=== PATIENT | female | born 1980 | race African-American/Black ===

== ENCOUNTER 2016-09-25 10:28 | Emergency (ER) | payer OTHER ==
--- NOTE | 2016-09-25 11:07 | ER Document Report ---
ED Medical Screen (RME) - General Chief Complaint: Abdominal Pain Stated Complaint: ABDOMINAL PAIN Time Seen by Provider: 09/25/16 11:05 Mode of Arrival: Ambulatory Information source: Patient Notes: 36-year-old female presents to ED for left pelvic pain she states she has had it for 3 days and she can usually just take ibuprofen and the pain is relieved at this time the pain is not being relieved with her ibuprofen. She states she is also having frequency of urine and has taken Azo for 3 days with no relief. States the pain does not radiate to her back. She has had nausea and vomiting. I have greeted and performed a rapid initial assessment of this patient. A comprehensive ED assessment and evaluation of the patient, analysis of test results and completion of medical decision making process will be conducted by an additional ED providers. TRAVEL OUTSIDE OF THE [place] IN LAST 30 DAYS: No - Related Data Allergies/Adverse Reactions: No Known Allergies Allergy (Verified 09/25/16 10:33) Past Medical History - Social History Chew tobacco use (# tins/day): No Frequency of alcohol use: None Drug Abuse: None - Past Medical History Cardiac Medical History: Reports: Hx Hypertension - Has not required any medications for this Pulmonary Medical History: Denies: Hx Tuberculosis Neurological Medical History: Reports: Hx Migraine Renal/ Medical History: Reports: Hx Kidney Stones. Denies: Hx Peritoneal Dialysis Psychiatric Medical History: Reports: Hx Depression Past Surgical History: Reports: Hx Breast Surgery - L lumpectomy, benign, Hx Dilation and Curettage, Hx Gynecologic Surgery - D&C - Immunizations Hx Diphtheria, Pertussis, Tetanus Vaccination: Yes Physical Exam - Vital signs Vitals: Temp Pulse Resp BP Pulse Ox 98.3 F 80 18 141/100 H 98 09/25/16 10:33 09/25/16 10:33 09/25/16 10:33 09/25/16 10:33 09/25/16 10:33 Course - Vital Signs Vital signs: Temp Pulse Resp BP Pulse Ox 98.3 F 80 18 141/100 H 98 09/25/16 10:33 09/25/16 10:33 09/25/16 10:33 09/25/16 10:33 09/25/16 10:33
[2016-09-25 11:43] LABS: ABSOLUTE BASOPHILS # (AUTO) 0.1 10^3/uL (0.0-0.2); ABSOLUTE EOSINOPHILS # (AUTO) 0.2 10^3/uL (0.0-0.6); ABSOLUTE LYMPHOCYTES (AUTO) 2.4 10^3/uL (0.5-4.7); ABSOLUTE MONOCYTES (AUTO) 0.4 10^3/uL (0.1-1.4); ABSOLUTE NEUT (AUTO) 5.9 10^3/uL (1.7-8.2); BASOPHILS % (AUTO) 0.6 % (0-2); EOSINOPHILS % (AUTO) 1.8 % (0-6); HEMATOCRIT 38.3 % (36.0-47.0); HEMOGLOBIN 12.3 g/dL (12.0-15.5); HGB HCT DIFFERENCE -1.4; MEAN CORPUSCULAR HEMOGLOBIN 30.2 pg (27.0-33.4); MEAN CORPUSCULAR HGB CONC 32.2 g/dL (32.0-36.0); MEAN CORPUSCULAR VOLUME 94 fl (80-97); MONOCYTES % (AUTO) 4.3 % (3-13); RED BLOOD COUNT 4.08 10^6/uL (3.72-5.28); RED CELL DISTRIBUTION WIDTH 13.7 % (11.5-14.0); SEGMENTED NEUTROPHILS % (AUTO) 66.3 % (42-78); WHITE BLOOD COUNT 8.9 10^3/uL (4.0-10.5)
[2016-09-25 11:59] LABS: APPEARANCE,URINE SLIGHTLY-CLOUDY; BILIRUBIN,URINE NEGATIVE (NEGATIVE); GLUCOSE, URINE NEGATIVE (NEGATIVE); KETONES,URINE NEGATIVE (NEGATIVE); LEUKOCYTE ESTERASE,URINE TRACE (NEGATIVE); NITRITE,URINE NEGATIVE (NEGATIVE); PROTEIN,URINE NEGATIVE (NEGATIVE); URINE SPECIFIC GRAVITY 1.024; UROBILINOGEN,URINE NEGATIVE mg/dL (<2.0)
[2016-09-25 12:06] LABS: ALANINE AMINOTRANSFERASE 31 U/L (9-52); ALBUMIN 4.1 g/dL (3.5-5.0); ALKALINE PHOSPHATASE 95 U/L (38-126); ANION GAP 11 (5-19); ASPARTATE AMINO TRANSFERASE 18 U/L (14-36); BILIRUBIN,DIRECT 0.2 mg/dL (0.0-0.4); BILIRUBIN,TOTAL 0.4 mg/dL (0.2-1.3); BLOOD UREA NITROGEN 12 mg/dL (7-20); CALCIUM 9.4 mg/dL (8.4-10.2); CARBON DIOXIDE 21 mmol/L (22-30); CHLORIDE 109 mmol/L (98-107); CREATININE RESULT 0.82 mg/dL (0.52-1.25); GLUCOSE 79 mg/dL (75-110); POTASSIUM 4.1 mmol/L (3.6-5.0); SODIUM 140.7 mmol/L (137-145); TOTAL PROTEIN 7.4 g/dL (6.3-8.2)
[2016-09-25] MEDS ORDERED: OXYCODONE-ACETAMINOPHEN 5-325 MG TABLET PO ONE (12:14)
[2016-09-25] MEDS ORDERED: DIPHENHYDRAMINE HCL 50 MG CAPSULE PO ONE (12:28)
--- NOTE | 2016-09-25 12:28 | ER Document Report ---
ED General - General Chief Complaint: Abdominal Pain Stated Complaint: ABDOMINAL PAIN Time Seen by Provider: 09/25/16 11:05 Mode of Arrival: Ambulatory Information source: Patient Notes: 36-year-old female history of uterine fibroids last checked 1 year ago noted to be a size of a golf ball presents with complaints of suprapubic left lower quadrant abdominal pain. Patient denies any fevers or chills, denies any urinary frequency believe this may be secondary to UTI. Patient took Azo but noted no symptomatic relief. Patient otherwise denies any other specific concerns TRAVEL OUTSIDE OF THE [place] IN LAST 30 DAYS: No - HPI Onset: Yesterday Onset/Duration: Persistent Quality of pain: Achy Severity: Mild Pain Level: 1 Associated symptoms: None Exacerbated by: Denies Relieved by: Denies Similar symptoms previously: No Recently seen / treated by doctor: No - Related Data Allergies/Adverse Reactions: No Known Allergies Allergy (Verified 09/25/16 10:33) Past Medical History - General Information source: Patient - Social History Smoking Status: Never Smoker Cigarette use (# per day): No Chew tobacco use (# tins/day): No Smoking Education Provided: No Frequency of alcohol use: None Drug Abuse: None Family History: Reviewed & Not Pertinent Patient has suicidal ideation: No Patient has homicidal ideation: No - Past Medical History Cardiac Medical History: Reports: Hx Hypertension - Has not required any medications for this Pulmonary Medical History: Denies: Hx Tuberculosis Neurological Medical History: Reports: Hx Migraine Renal/ Medical History: Reports: Hx Kidney Stones. Denies: Hx Peritoneal Dialysis Psychiatric Medical History: Reports: Hx Depression Past Surgical History: Reports: Hx Breast Surgery - L lumpectomy, benign, Hx Dilation and Curettage, Hx Gynecologic Surgery - D&C - Immunizations Hx Diphtheria, Pertussis, Tetanus Vaccination: Yes Review of Systems - Review of Systems Notes: REVIEW OF SYSTEMS: CONSTITUTIONAL : Denies fever, chills, or sweats. Denies recent illness. EENT: Denies eye, ear, throat, or mouth pain or symptoms. Denies nasal or sinus congestion or discharge. Denies throat, tongue, or mouth swelling or difficulty swallowing. CARDIOVASCULAR: Denies chest pain. Denies palpitations or racing or irregular heart beat. Denies ankle edema. RESPIRATORY: Denies cough, cold, or chest congestion. Denies shortness of breath, difficulty breathing, or wheezing. GASTROINTESTINAL: Lower quadrant pain GENITOURINARY: Denies difficulty urinating, painful urination, burning, frequency, blood in urine, or discharge. FEMALE GENITOURINARY: Denies vaginal bleeding, heavy or abnormal periods, irregular periods. Denies vaginal discharge or odor. MUSCULOSKELETAL: Denies back or neck pain or stiffness. Denies joint pain or swelling. SKIN: Denies rash, lesions or sores. HEMATOLOGIC : Denies easy bruising or bleeding. LYMPHATIC: Denies swollen, enlarged glands. NEUROLOGICAL: Denies confusion or altered mental status. Denies passing out or loss of consciousness. Denies dizziness or lightheadedness. Denies headache. Denies weakness or paralysis or loss of use of either side. Denies problems with gait or speech. Denies sensory loss, numbness, or tingling. Denies seizures. PSYCHIATRIC: Denies anxiety or stress. Denies depression, suicidal ideation, or homicidal ideation. ALL OTHER SYSTEMS REVIEWED AND NEGATIVE. PHYSICAL EXAMINATION: GENERAL: Well-appearing, well-nourished and in no acute distress. HEAD: Atraumatic, normocephalic. EYES: Pupils equal round and reactive to light, extraocular movements intact, conjunctiva are normal. ENT: Nares patent, oropharynx clear without exudates. Moist mucous membranes. NECK: Normal range of motion, supple without lymphadenopathy LUNGS: Breath sounds clear to auscultation bilaterally and equal. No wheezes rales or rhonchi. HEART: Regular rate and rhythm without murmurs ABDOMEN: Soft, minimally tender in the left lower quadrant Female : deferred Musculoskeletal: Normal range of motion, no pitting or edema. No cyanosis. NEUROLOGICAL: Cranial nerves grossly intact. Normal speech, normal gait. Normal sensory, motor exams PSYCH: Normal mood, normal affect. SKIN: Warm, Dry, normal turgor, no rashes or lesions noted. Dictation was performed using [employer] voice recognition software Physical Exam - Vital signs Vitals: Temp Pulse Resp BP Pulse Ox 98.3 F 80 18 141/100 H 98 09/25/16 10:33 09/25/16 10:33 09/25/16 10:33 09/25/16 10:33 09/25/16 10:33 Course - Re-evaluation Re-evalutation: 09/25/16 12:28 Labwork notes no significant abnormality, ultrasound pending to rule out any intrauterine issues however I believe this may be secondary to her uterine fibroid 09/25/16 15:07 Uterine fibroid is noted no other acute abnormality. Patient will be discharged to follow-up with her [employer] given pain control otherwise well- appearing in no distress After performing a Medical Screening Examination, I estimate there is LOW risk for ACUTE APPENDICITIS, BOWEL OBSTRUCTION, ACUTE CHOLECYSTITIS, PERFORATED DIVERTICULITIS, INCARCERATED HERNIA, PANCREATITIS, PELVIC INFLAMMATORY DISEASE, PERFORATED ULCER, ECTOPIC , or TUBO-OVARIAN ABSCESS, thus I consider the discharge disposition reasonable. Also, there is no evidence or peritonitis , sepsis, or toxicity. I have reevaluated this patient multiple times and no significant life threatening changes are noted. The patient and I have discussed the diagnosis and risks, and we agree with discharging home with close follow-up with the understanding that symptoms and presentations can change. We also discussed returning to the Emergency Department immediately if new or worsening symptoms occur. We have discussed the symptoms which are most concerning (e.g., bloody stool, fever, changing or worsening pain, vomiting) that necessitate immediate return. - Vital Signs Vital signs: Temp Pulse Resp BP Pulse Ox 98.3 F 80 18 141/100 H 98 09/25/16 10:33 09/25/16 10:33 09/25/16 10:33 09/25/16 10:33 09/25/16 10:33 - Laboratory Result Diagrams: 09/25/16 11:17 09/25/16 11:17 Laboratory results interpreted by me: 09/25/16 09/25/16 11:17 11:17 Chloride 109 H Carbon Dioxide 21 L Ur Leukocyte Esterase TRACE H Urine Ascorbic Acid 20 H - Diagnostic Test Radiology reviewed: Image reviewed, Reports reviewed - Report given to patient Discharge - Discharge Clinical Impression: Pelvic pain Uterine fibroid Qualifiers: Uterine leiomyoma location: unspecified location Qualified Code(s): D25.9 - Leiomyoma of uterus, unspecified Condition: Stable Disposition: HOME, SELF-CARE Additional Instructions: Follow up with your physician tomorrow for further care or return to the ED IMMEDIATELY if symptoms worsen or new concerns occur. If you cannot afford to follow up with your primary care physician a list of low cost clinics have been provided at the end of your discharge papers as well. Prescriptions: Oxycodone HCl/Acetaminophen [Percocet 5-325 mg Tablet] 1 - 2 tab PO Q4H PRN #15 tablet PRN Reason: Forms: Return to Work
[2016-09-25] MEDS ORDERED: ONDANSETRON 4 MG TAB.RAPDIS ONE (13:37)
[2016-09-25] MEDS ORDERED: ONDANSETRON 4 MG TAB.RAPDIS PO ONE (13:43)
--- NOTE | 2016-09-25 14:38 | RADIOLOGY REPORT (SQ) ---
EXAM DESCRIPTION: U/S NON OB PEL W/DOPPLER COMPLETED DATE/TIME: 09/25/2016 2:05 pm REASON FOR STUDY: left pelvic pain hx of fibroids COMPARISON: None. TECHNIQUE: Dynamic and static grayscale images acquired of the pelvis via transabdominal approach an d recorded on PACS. Additional selected color Doppler and spectral images recorded. LIMITATIONS: None. FINDINGS: UTERUS: Enlarged. Calcified fibroid measures up to 4.5 cm. ENDOMETRIAL STRIPE: No focal or generalized thickening. No masses. CERVIX: No nabothian cysts. RIGHT OVARY: Not seen. RIGHT OVARY DOPPLER: Ovary not visualized. LEFT OVARY: Not seen. LEFT OVARY DOPPLER: Ovary not visualized. FREE FLUID: None noted. OTHER: No other significant finding. MEASUREMENTS: UTERUS: 16.1 x 11.1 x 9.7 cm. ENDOMETRIAL STRIPE: 10 mm. RIGHT OVARY: Not visualized. LEFT OVARY: Not visualized. IMPRESSION: Enlarged fibroid uterus. TECHNICAL DOCUMENTATION: JOB ID: [id number] [employer]- All Rights Reserved
[2016-09-25 15:26] VITALS: BP 131/86
== END 2016-09-25 15:18 | disposition home or self-care (01) ==
LOC: ER 10:28
DX: D25.9 Leiomyoma of uterus, unspecified (principal); R10.2 Pelvic and perineal pain; R10.32 Left lower quadrant pain; Z87.442 Personal history of urinary calculi
CPT/HCPCS: 99284; 36415; 84703; 85025; 80053; 81001; 76856; 93976; S0119

== ENCOUNTER 2017-01-02 09:52 | Emergency (ER) | payer OTHER ==
[2017-01-02] MEDS ORDERED: KETOROLAC TROMETHAMINE 60 MG/2 ML SDV IM ONE (10:14)
[2017-01-02] MEDS ORDERED: PROCHLORPERAZINE EDISYLATE INJ 10 MG/2 ML VIAL IM ONE (10:14)
[2017-01-02] MEDS ORDERED: DIPHENHYDRAMINE HCL 50 MG/ML VIAL IM ONE (10:14)
--- NOTE | 2017-01-02 10:15 | ER Document Report ---
ED General - General Mode of Arrival: Ambulatory Information source: Patient TRAVEL OUTSIDE OF THE [place] IN LAST 30 DAYS: No - HPI Similar symptoms previously: Yes Recently seen / treated by doctor: No - General Chief Complaint: Back Pain Stated Complaint: LOW BACK PAIN HEADACHE Time Seen by Provider: 01/02/17 10:13 Notes: Patient is a 36 year old female presenting to the emergency department for low back pain and headache. Patient states she has had the back pain that radiates into her abdomen bilaterally x1 month. Patient states her abdominal pain is more severe today. Patient also states her headache was onset last night and is less severe today and is only located in her right eye. Patient has been using icy-hot with Lidocaine and ibuprofen for her back/abdominal pain. Patient states she used OTC medications for her headache including Aleive headache and sinus, and Nasacort. Patient states she has pain with walking, chills, and she denies any injury or trauma. Patient denies any bladder or bowel disfunction. Patient denies any vision changes. Patient denies any numbness, weakness or tingling sensations. Patient is on control and her last menstrual period was 12/03/16 and is slightly irregular. Patient is allergic to sumatriptan. (ABHISHEK BARRAGAN) - Related Data Allergies/Adverse Reactions: sumatriptan Allergy (Verified 01/02/17 10:14) Past Medical History - General Information source: Patient - Social History Smoking Status: Former Smoker Chew tobacco use (# tins/day): No Frequency of alcohol use: Occasional Drug Abuse: None Family History: None Patient has suicidal ideation: No Patient has homicidal ideation: No - Past Medical History Cardiac Medical History: Reports: Hx Hypertension - Has not required any medications for this Neurological Medical History: Reports: Hx Migraine Renal/ Medical History: Reports: Hx Kidney Stones Psychiatric Medical History: Reports: Hx Depression Past Surgical History: Reports: Hx Breast Surgery - L lumpectomy, benign, Hx Dilation and Curettage, Hx Gynecologic Surgery - D&C - Immunizations Hx Diphtheria, Pertussis, Tetanus Vaccination: Yes - 2013 Review of Systems - Review of Systems Constitutional: See HPI, Chills. denies: Fever EENT: denies: Blurred vision Gastrointestinal: See HPI, Abdominal pain. denies: Diarrhea Genitourinary: No symptoms reported. denies: Burning, Dysuria Female Genitourinary: No symptoms reported Musculoskeletal: See HPI, Back pain Neurological/Psychological: See HPI, Headaches Physical Exam - Vital signs Vitals: Temp Pulse Resp BP Pulse Ox 98.4 F 78 16 147/88 H 98 01/02/17 10:01 01/02/17 10:01 01/02/17 10:01 01/02/17 10:01 01/02/17 10:01 - Notes Notes: GENERAL: Alert. Leaning forward in chair. Appears mildly uncomfortable. HEAD: Normocephalic, atraumatic. EYES: Pupils equal, round, and reactive to light. Extraocular movements intact. ENT: Oral mucosa moist, tongue midline. NECK: Full range of motion. Supple. Trachea midline. LUNGS: Clear to auscultation bilaterally, no wheezes, rales, or rhonchi. No respiratory distress. HEART: Regular rate and rhythm. No murmurs, gallops, or rubs. ABDOMEN: Soft, Mild tenderness to the bilateral lower quadrants, not tender suprapubically. Non-distended. Bowel sounds present in all 4 quadrants. BACK: No step-offs or deformities. Tenderness to the bilaterally lumbar paraspinal musculature. EXTREMITIES: Moves all 4 extremities spontaneously. No edema. No cyanosis. NEUROLOGICAL: Alert and oriented x3. Normal speech. 5/5 great toe raise strength. Sensation intact, no saddle anesthesia. Ambulates without difficulty. PSYCH: Normal affect, normal mood. SKIN: Warm, dry, normal turgor. No rashes or lesions noted. (ABHISHEK BARRAGAN) Course - Re-evaluation Re-evalutation: 01/02/17 11:02 No signs of cauda equina, no neurologic deficits, consistent with her usual migraines, urinalysis shows no blood or infection, patient is not . Patient will be treated with Toradol, Compazine, Benadryl for the headache and given muscle relaxers in the form of Robaxin for her low back pain and discharged home. Counseled on warning signs for cauda equina that should prompt her immediate return. (NARCISA FREEMAN) - Vital Signs Vital signs: Temp Pulse Resp BP Pulse Ox 97.8 F 76 20 125/71 99 01/02/17 11:08 01/02/17 11:08 01/02/17 11:08 01/02/17 11:08 01/02/17 11:08 - Laboratory Laboratory results interpreted by me: 01/02/17 10:20 Urine Ascorbic Acid 40 H Discharge - Discharge Clinical Impression: Acute exacerbation of chronic low back pain Migraine headache Qualifiers: Migraine type: without aura Status migrainosus presence: with status migrainosus Intractability: intractable Qualified Code(s): G43.011 - Migraine without aura, intractable, with status migrainosus Hypertension Qualifiers: Hypertension type: essential hypertension Qualified Code(s): I10 - Essential ( primary) hypertension Disposition: HOME, SELF-CARE Instructions: Low Back Pain ([facility]) Prescriptions: Methocarbamol [Robaxin 750 mg Tablet] 750 mg PO ASDIR PRN #40 tablet PRN Reason: Scribe Attestation: 01/02/17 11:13 I personally performed the services described in the documentation, reviewed and edited the documentation which was dictated to the scribe in my presence, and it accurately records my words and actions. (NARCISA FREEMAN) Scribe Documentation - Scribe Written by Leidy:: Leidy Galeas 01/02/17 10:37 acting as scribe for :: Staci
[2017-01-02 10:40] LABS: APPEARANCE,URINE CLOUDY; BILIRUBIN,URINE NEGATIVE (NEGATIVE); GLUCOSE, URINE NEGATIVE (NEGATIVE); KETONES,URINE NEGATIVE (NEGATIVE); LEUKOCYTE ESTERASE,URINE NEGATIVE (NEGATIVE); NITRITE,URINE NEGATIVE (NEGATIVE); PROTEIN,URINE NEGATIVE (NEGATIVE); URINE SPECIFIC GRAVITY 1.029; UROBILINOGEN,URINE NEGATIVE mg/dL (<2.0)
[2017-01-02 11:09] VITALS: BP 125/71
== END 2017-01-02 11:09 | disposition home or self-care (01) ==
LOC: ER 09:52
DX: G89.29 Other chronic pain (principal); M54.5 Low back pain; G43.011 Migraine without aura, intractable, with status migrainosus; I10 Essential (primary) hypertension; R10.9 Unspecified abdominal pain
CPT/HCPCS: 99283; 96372; 81025; 81001; J1200; J1885; J0780

== ENCOUNTER 2017-04-04 09:59 | Emergency (ER) | payer OTHER ==
[2017-04-04 10:06] VITALS: BP 137/85
--- NOTE | 2017-04-04 10:23 | ER Document Report ---
HPI - HPI Pain Level: 3 Notes: Patient is a 37-year-old female who presents to the ED complaining of nasal congestion/discharge, intermittent bloody nose, sinus headaches, postnasal drip , sinus pain 4 weeks. Patient states that she has been using several over-the- counter medications which she brought a list of without any relief over the last month. Patient states that her symptoms have been persistent. Patient states that she does have an intermittent sore throat, postnasal drip, but is otherwise eating and drinking without any difficulties. She is urinating normally and having normal bowel movements. Patient denies any drug allergies. Patient has a history of migraines otherwise no other significant past medical history. Denies any fever, head injury, neck pain, changes in vision/ speech/mentation/hearing, sore throat, chest pain, palpitations, syncope, cough , shortness of breath, wheeze, dyspnea, abdominal pain, nausea/vomiting/diarrhea , urinary retention, dysuria, hematuria, loss of control of bowel or bladder, numbness/tingling, muscle paralysis/weakness, or rash. - ROS Notes: REVIEW OF SYSTEMS: CONSTITUTIONAL : Denies fever, chills, or sweats. Denies recent illness. EENT: see hpi CARDIOVASCULAR: Denies chest pain. Denies palpitations or racing or irregular heart beat. Denies ankle edema. RESPIRATORY: Denies cough, cold, or chest congestion. Denies shortness of breath, difficulty breathing, or wheezing. GASTROINTESTINAL: Denies abdominal pain or distention. Denies nausea, vomiting , or diarrhea. Denies blood in vomitus, stools, or per rectum. Denies black, tarry stools. Denies constipation. GENITOURINARY: Denies difficulty urinating, painful urination, burning, frequency, blood in urine, or discharge. MUSCULOSKELETAL: Denies back or neck pain or stiffness. Denies joint pain or swelling. SKIN: Denies rash, lesions or sores. NEUROLOGICAL: Denies confusion or altered mental status. Denies passing out or loss of consciousness. Denies dizziness or lightheadedness. Denies headache. Denies weakness or paralysis or loss of use of either side. Denies problems with gait or speech. Denies sensory loss, numbness, or tingling. Denies seizures. ALL OTHER SYSTEMS REVIEWED AND NEGATIVE. Dictation was performed using [employer] voice recognition software - REPRODUCTIVE Reproductive: DENIES: : Past Medical History - Social History Smoking Status: Never Smoker Family History: None - Past Medical History Cardiac Medical History: Reports: Hx Hypertension - Has not required any medications for this Pulmonary Medical History: Denies: Hx Tuberculosis Neurological Medical History: Reports: Hx Migraine Renal/ Medical History: Reports: Hx Kidney Stones. Denies: Hx Peritoneal Dialysis Psychiatric Medical History: Reports: Hx Depression Past Surgical History: Reports: Hx Breast Surgery - L lumpectomy, benign, Hx Dilation and Curettage, Hx Gynecologic Surgery - D&C - Immunizations Hx Diphtheria, Pertussis, Tetanus Vaccination: Yes - 2013 [facility] Provider Document - CONSTITUTIONAL Agree With Documented VS: Yes Notes: PHYSICAL EXAMINATION: GENERAL: Well-appearing, well-nourished and in no acute distress. A&Ox4 HEAD: Atraumatic, normocephalic. EYES: Pupils equal round and reactive to light, extraocular movements intact, sclera anicteric, conjunctiva are normal. ENT: EAC clear b/l. TM's intact b/l without erythema, fluid, or perforation. Nares patent and with yellow discharge and mild erythema noted. oropharynx mild erythema without exudates. 1+ tonsilar hypertrophy without erythema or exudate. No palatine shift. Uvula midline. No tongue protrusion. No drooling , hoarseness, or airway compromise. Moist mucous membranes. + sinus tenderness and illumination test. NECK: Normal range of motion, supple without lymphadenopathy. No rigidity/ meningismus. LUNGS: Breath sounds clear to auscultation bilaterally and equal. No wheezes rales or rhonchi. HEART: Regular rate and rhythm without murmurs, rubs, gallops. ABDOMEN: Soft, nontender, nondistended abdomen. No guarding, no rebound. No masses appreciated. Normal bowel sounds present. No CVA tenderness bilaterally. NEUROLOGICAL: Normal speech, normal gait. Normal sensory, motor exams PSYCH: Normal mood, normal affect. SKIN: Warm, Dry, normal turgor, no rashes or lesions noted. - INFECTION CONTROL TRAVEL OUTSIDE OF THE [place] IN LAST 30 DAYS: No - RESPIRATORY O2 Sat by Pulse Oximetry: 98 Course - Re-evaluation Re-evalutation: 04/04/17 10:20 Patient is an afebrile, well-hydrated, 37-year-old female who presents to the ED with acute sinusitis based on H&P today. Vitals are stable. PE is otherwise unremarkable. Patient has had less symptoms for weeks and brings a very detailed use of her [id number] meds with minimal relief. Patient had a positive illumination test as well. I will send her home with a prescription for Augmentin to take as directed. Conservative measures for symptoms otherwise. Low suspicion for any meningitis, sepsis, peritonsillar/ pharyngeal abscess, respiratory compromise, Adonis's, or other emergent systemic condition at this time. Patient is aware this condition can change from initial presentation and she needs to monitor symptoms closely. Conservative measures otherwise for symptoms. Recheck with your PCM in 3-5 days. Return to the ED with any worsening/concerning symptoms otherwise as reviewed in discharge. Patient is in agreement. - Vital Signs Vital signs: Temp Pulse Resp BP Pulse Ox 98.7 F 80 18 137/85 H 98 04/04/17 10:04 04/04/17 10:04 04/04/17 10:04 04/04/17 10:04 04/04/17 10:04 Discharge - Discharge Clinical Impression: Acute sinusitis Qualifiers: Sinusitis location: maxillary Recurrence: non-recurrent Qualified Code(s): J01.00 - Acute maxillary sinusitis, unspecified Condition: Stable Disposition: HOME, SELF-CARE Instructions: Sinusitis ([facility]), Augmentin ([facility]) Additional Instructions: Maintain adequate fluid intake Take meds as directed Salt water gargles, throat sprays, mouthwash rinse, peroxide gargles tylenol/ibuprofen as needed over the counter cold medication as needed for symptoms F/u: with your PCM in 3-5 days for a recheck Return to the ED with any fever, worsening pain, chest pain, neck pain/stiffness , shortness of breath, cough, drooling, trouble swallowing/breathing, abdominal pain, n/v/d, rash, or worsening/concerning symptoms otherwise. Prescriptions: Amox Tr/Potassium Clavulanate [Augmentin 875-125 Tablet] 1 tab PO BID 10 Days # 20 tablet Forms: Elevated Blood Pressure Referrals: [facility] [Provider Group] - Follow up as needed [facility] [Provider Group] - Follow up as needed
== END 2017-04-04 10:35 | disposition home or self-care (01) ==
LOC: ER 09:59
DX: J01.00 Acute maxillary sinusitis, unspecified (principal); J02.9 Acute pharyngitis, unspecified; J35.1 Hypertrophy of tonsils; R04.0 Epistaxis; R51 Headache; R09.82 Postnasal drip; I10 Essential (primary) hypertension
CPT/HCPCS: 99283

== ENCOUNTER 2017-07-18 13:50 | Emergency (ER) | payer OTHER ==
--- NOTE | 2017-07-18 15:29 | RADIOLOGY REPORT (SQ) ---
EXAM DESCRIPTION: HIP RIGHT AP/LATERAL COMPLETED DATE/TIME: 07/18/2017 3:10 pm REASON FOR STUDY: right hip pain COMPARISON: None. NUMBER OF VIEWS: Two views. TECHNIQUE: AP pelvis and additional frog-leg view of the right hip. LIMITATIONS: None. FINDINGS: MINERALIZATION: Normal. RIGHT HIP: No fracture or dislocation. No worrisome bone lesions. No contour deformity. No joint sp yoan narrowing. LEFT HIP: No fracture or dislocation. No worrisome bone lesions. PUBIS AND ISCHIUM: No fracture. PELVIS: No fracture. SACRUM: No fracture or dislocation. No worrisome bone lesions. LOWER LUMBAR SPINE: No fracture or dislocation. No worrisome bone lesions. No significant disc disea se. SOFT TISSUES: No findings. OTHER: No other significant finding. IMPRESSION: NEGATIVE STUDY OF THE RIGHT HIP. NO EXPLANATION FOR PAIN. TECHNICAL DOCUMENTATION: JOB ID: [id number] [employer]- All Rights Reserved Reading location - IP/workstation name: [email or web address]
--- NOTE | 2017-07-18 15:41 | ER Document Report ---
HPI - HPI Patient complains to provider of: right low back pain Onset: Other - 1 month Onset/Duration: Persistent Pain Level: 4 Context: 37 yo morbidly obese female c/o right low back pain that radiates into buttocks , hip, lateral right thigh for 1 month. Worse when she stands at work. No saddle anesthesia. No fever or chills. No IV drug use. Associated Symptoms: None Exacerbated by: Standing, Movement Relieved by: Denies Similar symptoms previously: No Recently seen / treated by doctor: No - ROS ROS below otherwise negative: Yes Systems Reviewed and Negative: Yes All other systems reviewed and negative - REPRODUCTIVE Reproductive: DENIES: : Past Medical History - General Information source: Patient - Social History Smoking Status: Never Smoker Frequency of alcohol use: None Drug Abuse: None Lives with: Family Family History: None - Past Medical History Cardiac Medical History: Reports: Hx Hypertension - Has not required any medications for this Pulmonary Medical History: Denies: Hx Tuberculosis Neurological Medical History: Reports: Hx Migraine Renal/ Medical History: Reports: Hx Kidney Stones. Denies: Hx Peritoneal Dialysis Psychiatric Medical History: Reports: Hx Depression Past Surgical History: Reports: Hx Breast Surgery - L lumpectomy, benign, Hx Dilation and Curettage, Hx Gynecologic Surgery - D&C - Immunizations Hx Diphtheria, Pertussis, Tetanus Vaccination: Yes - 2013 [facility] Provider Document - CONSTITUTIONAL Agree With Documented VS: Yes Exam Limitations: No Limitations General Appearance: Mild Distress - INFECTION CONTROL TRAVEL OUTSIDE OF THE [place] IN LAST 30 DAYS: No - HEENT HEENT: Normocephalic - NECK Neck: Supple - BACK Back: Normal Inspection. negative: CVA Tenderness-Right, CVA Tenderness-Left - MUSCULOSKELETAL/EXTREMETIES Musculoskeletal/Extremeties: MAEW, FROM, Tender - right SI joint pain - NEURO Level of Consciousness: Awake, Alert Motor/Sensory: No Motor Deficit, No Sensory Deficit Deep Tendon Reflexes: 2+ - bilateral ankle and patellar - DERM Integumentary: No Rash Course - Re-evaluation Re-evalutation: 07/18/17 16:14 X-rays negative per radiologist and putting traction on her right legand tge external rotation of the right hip is decreasing the pain. Discharge - Discharge Clinical Impression: right sacroillitis Condition: Good Disposition: HOME, SELF-CARE Instructions: Acetaminophen, Arthralgia ([facility]), Chiropractor, Ibuprofen (General ) ([facility]), Low Back Pain ([facility]), Muscle Relaxers ([facility]), Muscle Strain ([facility]) Additional Instructions: heat stretches that we discussed motrin 100 mg 3 times a day with food formation tylenol up to 4000 mg per day for pain flexeril as muscle relaxer See chiropractor for recheck Prescriptions: Ibuprofen [Motrin 800 mg Tablet] 800 mg PO Q8HP PRN #30 tablet PRN Reason: Cyclobenzaprine HCl [Flexeril 10 Mg Tablet] 10 mg PO TIDP PRN #20 tablet PRN Reason: Forms: Return to Work Referrals: ISA SWANSON DC [CHIROPRACTOR] - Follow up as needed
[2017-07-18] MEDS ORDERED: HYDROCODONE/ACETAMINOPHEN 5-325 MG TABLET PO ONE (16:15)
[2017-07-18 16:56] VITALS: BP 127/89
== END 2017-07-18 16:56 | disposition home or self-care (01) ==
LOC: ER 13:50
DX: M46.1 Sacroiliitis, not elsewhere classified (principal); I10 Essential (primary) hypertension
CPT/HCPCS: 99283

== ENCOUNTER 2017-09-11 08:36 | Emergency (ER) | payer OTHER ==
[2017-09-11] MEDS ORDERED: ACETAMINOPHEN 325 MG TABLET PO ONE (09:23)
--- NOTE | 2017-09-11 09:24 | ER Document Report ---
ED Medical Screen (RME) - General Chief Complaint: Abdominal Pain Stated Complaint: ABDOMINAL PAIN Time Seen by Provider: 09/11/17 09:14 Notes: 37-year-old female with a history of uterine fibroids presents with complaint of 1 week of left lower abdominal pain. Patient describes the pain as a throbbing, stabbing pain that is not relieved with NSAIDs. Patient has had an abnormal periods and states her last menstrual period was June 2017. She is currently sexually active with her . Patient denies associated dysuria, hematuria, vaginal discharge. She denies any prior similar symptoms. I have greeted and performed a rapid initial assessment of this patient. A comprehensive ED assessment and evaluation of the patient including analysis of labs and imaging ( if obtained) and completion of medical decision making will be conducted by an additional ED provider. PHYSICAL EXAMINATION: GENERAL: Well-appearing, well-nourished and in no acute distress. HEAD: Atraumatic, normocephalic. EYES: Pupils equal round extraocular movements intact, conjunctiva are normal. ENT: Nares patent NECK: Normal range of motion LUNGS: No respiratory distress Musculoskeletal: Normal range of motion NEUROLOGICAL: Normal speech, normal gait. PSYCH: Normal mood, normal affect. SKIN: Warm, Dry, normal turgor, no rashes or lesions noted. TRAVEL OUTSIDE OF THE [place] IN LAST 30 DAYS: No - Related Data Allergies/Adverse Reactions: No Known Allergies Allergy (Verified 09/11/17 08:37) Past Medical History - Social History Frequency of alcohol use: None Drug Abuse: None - Past Medical History Cardiac Medical History: Reports: Hx Hypertension - Has not required any medications for this Pulmonary Medical History: Denies: Hx Tuberculosis Neurological Medical History: Reports: Hx Migraine Renal/ Medical History: Reports: Hx Kidney Stones. Denies: Hx Peritoneal Dialysis Psychiatric Medical History: Reports: Hx Depression Past Surgical History: Reports: Hx Breast Surgery - L lumpectomy, benign, Hx Dilation and Curettage, Hx Gynecologic Surgery - D&C - Immunizations Hx Diphtheria, Pertussis, Tetanus Vaccination: Yes - 2013 History of Influenza Vaccine for 12/2016 - 05/2017 Season: Unknown Physical Exam - Vital signs Vitals: Temp Pulse Resp BP Pulse Ox 98.9 F 88 20 132/70 H 97 09/11/17 08:44 09/11/17 08:44 09/11/17 08:44 09/11/17 08:44 09/11/17 08:44 Course - Vital Signs Vital signs: Temp Pulse Resp BP Pulse Ox 98.9 F 88 20 132/70 H 97 09/11/17 08:44 09/11/17 08:44 09/11/17 08:44 09/11/17 08:44 09/11/17 08:44
[2017-09-11 09:48] LABS: ABSOLUTE EOSINOPHILS # (AUTO) 0.2 10^3/uL (0.0-0.6); ABSOLUTE LYMPHOCYTES (AUTO) 2.1 10^3/uL (0.5-4.7); ABSOLUTE MONOCYTES (AUTO) 0.4 10^3/uL (0.1-1.4); ABSOLUTE NEUT (AUTO) 5.2 10^3/uL (1.7-8.2); BASOPHILS % (AUTO) 0.5 % (0-2); EOSINOPHILS % (AUTO) 2.5 % (0-6); HEMATOCRIT 37.8 % (36.0-47.0); HEMOGLOBIN 12.7 g/dL (12.0-15.5); LYMPHOCYTES % (AUTO) 26.8 % (13-45); MEAN CORPUSCULAR HEMOGLOBIN 31.5 pg (27.0-33.4); MEAN CORPUSCULAR HGB CONC 33.7 g/dL (32.0-36.0); MEAN CORPUSCULAR VOLUME 94 fl (80-97); MONOCYTES % (AUTO) 4.7 % (3-13); PLATELET COUNT 345 10^3/uL (150-450); RED BLOOD COUNT 4.04 10^6/uL (3.72-5.28); RED CELL DISTRIBUTION WIDTH 13.5 % (11.5-14.0); SEGMENTED NEUTROPHILS % (AUTO) 65.5 % (42-78); TOTAL CELLS COUNTED % (AUTO) 100 %; WHITE BLOOD COUNT 7.9 10^3/uL (4.0-10.5)
[2017-09-11 09:51] LABS: APPEARANCE,URINE SLIGHTLY-CLOUDY; BILIRUBIN,URINE NEGATIVE (NEGATIVE); COLOR,URINE YELLOW; GLUCOSE, URINE NEGATIVE (NEGATIVE); KETONES,URINE NEGATIVE (NEGATIVE); LEUKOCYTE ESTERASE,URINE NEGATIVE (NEGATIVE); NITRITE,URINE NEGATIVE (NEGATIVE); PROTEIN,URINE NEGATIVE (NEGATIVE); URINE SPECIFIC GRAVITY 1.017; UROBILINOGEN,URINE NEGATIVE mg/dL (<2.0)
[2017-09-11 09:58] LABS: ANION GAP 8 (5-19); BLOOD UREA NITROGEN 10 mg/dL (7-20); CALCIUM 9.4 mg/dL (8.4-10.2); CARBON DIOXIDE 30 mmol/L (22-30); CHLORIDE 105 mmol/L (98-107); GLUCOSE 87 mg/dL (75-110); POTASSIUM 4.2 mmol/L (3.6-5.0); SODIUM 142.9 mmol/L (137-145)
--- NOTE | 2017-09-11 10:12 | ER Document Report ---
ED GI/ - General Chief Complaint: Abdominal Pain Stated Complaint: ABDOMINAL PAIN Time Seen by Provider: 09/11/17 09:14 Mode of Arrival: Ambulatory Information source: Patient Notes: Patient presents complaining of left lower quadrant pelvic pain for the past week. Patient does complain of nausea. Patient denies any fever, vomiting, diarrhea or urinary symptoms. Patient denies any vaginal bleeding or discharge. TRAVEL OUTSIDE OF THE [place] IN LAST 30 DAYS: No - HPI Patient complains to provider of: Pelvic pain. No: Vomiting Onset: Last week Timing/Duration: Persistent Quality of pain: Sharp Pain Level: 4 Location: LLQ Menstrual period history: denies: Sexual history: Active Associated symptoms: Nausea. denies: Dysuria, Fever, Urinary hesitancy, Urinary frequency, Urinary retention, Urinary urgency, Vaginal discharge, Vomiting Exacerbated by: Movement Relieved by: Denies Similar symptoms previously: No Recently seen / treated by doctor: No - Related Data Allergies/Adverse Reactions: No Known Allergies Allergy (Verified 09/11/17 08:37) Past Medical History - General Information source: Patient - Social History Smoking Status: Never Smoker Frequency of alcohol use: None Drug Abuse: None Occupation: [employer] Lives with: Family Family History: None Patient has suicidal ideation: No Patient has homicidal ideation: No - Past Medical History Cardiac Medical History: Reports: Hx Hypertension - Has not required any medications for this Pulmonary Medical History: Denies: Hx Tuberculosis Neurological Medical History: Reports: Hx Migraine Renal/ Medical History: Reports: Hx Kidney Stones. Denies: Hx Peritoneal Dialysis Psychiatric Medical History: Reports: Hx Depression Past Surgical History: Reports: Hx Breast Surgery - L lumpectomy, benign, Hx Dilation and Curettage, Hx Gynecologic Surgery - D&C - Immunizations Hx Diphtheria, Pertussis, Tetanus Vaccination: Yes - 2013 Review of Systems - Review of Systems Constitutional: No symptoms reported. denies: Fever, Recent illness EENT: No symptoms reported Cardiovascular: No symptoms reported Respiratory: No symptoms reported. denies: Cough Gastrointestinal: Abdominal pain, Nausea. denies: Vomiting Genitourinary: No symptoms reported. denies: Dysuria, Flank pain Female Genitourinary: No symptoms reported Musculoskeletal: No symptoms reported. denies: Back pain Skin: No symptoms reported Hematologic/Lymphatic: No symptoms reported Neurological/Psychological: No symptoms reported Physical Exam - Vital signs Vitals: Temp Pulse Resp BP Pulse Ox 98.9 F 88 20 132/70 H 97 09/11/17 08:44 09/11/17 08:44 09/11/17 08:44 09/11/17 08:44 09/11/17 08:44 - General General appearance: Appears well, Alert In distress: None - HEENT Head: Normocephalic, Atraumatic Eyes: Normal Conjunctiva: Normal Nasal: Normal Mouth/Lips: Normal Mucous membranes: Normal Neck: Normal - Respiratory Respiratory status: No respiratory distress Chest status: Nontender Breath sounds: Normal. No: Rales, Rhonchi, Stridor, Wheezing Chest palpation: Normal - Cardiovascular Rhythm: Regular Heart sounds: S1 appreciated, S2 appreciated Murmur: No - Abdominal Inspection: Morbidly Obese Distension: No distension Bowel sounds: Normal Tenderness: Tender - Left lower pelvic. No: Padilla's sign, Guarding Organomegaly: No organomegaly - Genitourinary External exam: Normal Speculum exam: Cervix closed Vaginal bleeding: None Bimanuel exam: Adnexal tenderness - Left. No: Cervical motion tender - Back Back: Normal, Nontender. No: CVA tenderness - Extremities General upper extremity: Normal inspection, Normal ROM General lower extremity: Normal inspection, Normal ROM - Neurological Neuro grossly intact: Yes Cognition: Normal Cooper Coma Scale Eye Opening: Spontaneous [place] Coma Scale Verbal: Oriented Cooper Coma Scale Motor: Obeys Commands Cooper Coma Scale Total: 15 - Psychological Associated symptoms: Normal affect, Normal mood - Skin Skin Temperature: Warm Skin Moisture: Dry Skin Color: Normal Course - Re-evaluation Re-evalutation: 09/11/17 11:26 Patient continues with complaints of left lower pelvic sharp pain. Patient uncomfortable and is requesting additional pain medication. - Vital Signs Vital signs: Temp Pulse Resp BP Pulse Ox 97.6 F 79 18 121/73 100 09/11/17 14:13 09/11/17 14:13 09/11/17 14:13 09/11/17 14:13 09/11/17 14:13 - Laboratory Result Diagrams: 09/11/17 09:20 09/11/17 09:20 Laboratory results interpreted by me: Labs- Entire Visit 09/11/17 09/11/17 09/11/17 09:20 09:20 09:20 WBC 7.9 RBC 4.04 Hgb 12.7 Hct 37.8 MCV 94 MCH 31.5 MCHC 33.7 RDW 13.5 Plt Count 345 Seg Neutrophils % 65.5 Lymphocytes % 26.8 Monocytes % 4.7 Eosinophils % 2.5 Basophils % 0.5 Absolute Neutrophils 5.2 Absolute Lymphocytes 2.1 Absolute Monocytes 0.4 Absolute Eosinophils 0.2 Absolute Basophils 0.0 Sodium 142.9 Potassium 4.2 Chloride 105 Carbon Dioxide 30 Anion Gap 8 BUN 10 Creatinine 0.73 Est GFR ( Amer) > 60 Est GFR (Non-Af Amer) > 60 Glucose 87 Calcium 9.4 Urine Color YELLOW Urine Appearance SLIGHTLY-CLOUDY Urine pH 6.0 Ur Specific Haines 1.017 Urine Protein NEGATIVE Urine Glucose (UA) NEGATIVE Urine Ketones NEGATIVE Urine Blood NEGATIVE Urine Nitrite NEGATIVE Urine Bilirubin NEGATIVE Urine Urobilinogen NEGATIVE Ur Leukocyte Esterase NEGATIVE Urine WBC (Auto) 2 Urine RBC (Auto) 2 Squamous Epi Cells Auto 5 Urine Mucus (Auto) RARE Urine Ascorbic Acid NEGATIVE Urine HCG, Qual NEGATIVE Epi Cells (Wet Prep) Trichomonas (Wet Prep) Vaginal WBC Vaginal Yeast Chlamydia DNA (PCR) N.gonorrhoeae DNA (PCR) 09/11/17 09/11/17 10:08 10:08 WBC RBC Hgb Hct MCV MCH MCHC RDW Plt Count Seg Neutrophils % Lymphocytes % Monocytes % Eosinophils % Basophils % Absolute Neutrophils Absolute Lymphocytes Absolute Monocytes Absolute Eosinophils Absolute Basophils Sodium Potassium Chloride Carbon Dioxide Anion Gap BUN Creatinine Est GFR ( Amer) Est GFR (Non-Af Amer) Glucose Calcium Urine Color Urine Appearance Urine pH Ur Specific Haines Urine Protein Urine Glucose (UA) Urine Ketones Urine Blood Urine Nitrite Urine Bilirubin Urine Urobilinogen Ur Leukocyte Esterase Urine WBC (Auto) Urine RBC (Auto) Squamous Epi Cells Auto Urine Mucus (Auto) Urine Ascorbic Acid Urine HCG, Qual Epi Cells (Wet Prep) 3+ EPITHELIALS SEEN Trichomonas (Wet Prep) NO TRICHOMONAS SEEN Vaginal WBC 1+ WBCS SEEN Vaginal Yeast NO YEAST SEEN Chlamydia DNA (PCR) NOT DETECTED N.gonorrhoeae DNA (PCR) NOT DETECTED - Diagnostic Test Radiology reviewed: Reports reviewed Discharge - Discharge Clinical Impression: Pelvic pain Ovarian cyst Qualifiers: Laterality: left Qualified Code(s): N83.202 - Unspecified ovarian cyst, left side Fibroid, uterine Qualifiers: Uterine leiomyoma location: unspecified location Qualified Code(s): D25.9 - Leiomyoma of uterus, unspecified Condition: Stable Disposition: HOME, SELF-CARE Instructions: Oral Narcotic Medication ([facility]), Ovarian Cyst ([facility]), Pelvic Pain ( [facility]) Additional Instructions: Return immediately for any new or worsening symptoms Followup with your primary care provider, call tomorrow to make a followup appointment 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
[2017-09-11 10:19] LABS: EPITHELIALS (WET MOUNT) 3+ EPITHELIALS SEEN; T.VAGINALIS (WET MOUNT) NO TRICHOMONAS SEEN; WBCS (WET MOUNT) 1+ WBCS SEEN; YEAST (WET MOUNT) NO YEAST SEEN
--- NOTE | 2017-09-11 11:03 | RADIOLOGY REPORT (SQ) ---
EXAM DESCRIPTION: U/S NON OB PEL TV W/DOPPLER COMPLETED DATE/TIME: 09/11/2017 10:45 am REASON FOR STUDY: left adnexal pain COMPARISON: CT abdomen pelvis 08/07/2014 Pelvic ultrasound 09/25/2016 TECHNIQUE: Dynamic and static grayscale images acquired of the pelvis via transvaginal approach and recorded on PACS. Additional selected color Doppler and spectral images recorded. LIMITATIONS: Bilateral adnexal bowel gas, unable to visualize the right or left adnexa. Limited mesfin dy due to large body habitus. Uterine fundus not well seen FINDINGS: UTERUS: Uterus is 15 x 8 x 9 cm in size. The peripherally calcified submucosal fibroid or polyp seen in the uterine fundus on studies from 2014 and 2016 is not identified on this endovaginal exam. Uterine fundus not well seen. ENDOMETRIAL STRIPE: Less than 6 mm in thickness CERVIX: Small nabothian cysts. Cervix is closed, 5 cm in length. RIGHT OVARY AND DOPPLER: Not visualized LEFT OVARY AND DOPPLER: Not visualized FREE FLUID: None noted. OTHER: No other significant finding. IMPRESSION: Enlarged uterus. Peripherally calcified submucosal fibroid or endometrial polyp seen on 08/07/2014 and 09/25/2016 studies is not identified on today's endovaginal exam. Nonvisualization of the adnexa due to bowel gas and technical limitations TECHNICAL DOCUMENTATION: JOB ID: [id number] [employer]- All Rights Reserved Rev-08/12 Reading location - IP/workstation name: [email or web address]
[2017-09-11 11:45] LABS: CHLAM PCR NOT DETECTED (NOT DETECT); GON PCR NOT DETECTED (NOT DETECT)
[2017-09-11] MEDS ORDERED: FENTANYL CITRATE INJ/PF 100 MCG/2 ML AMPUL IV ONE (12:24)
--- NOTE | 2017-09-11 13:17 | RADIOLOGY REPORT (SQ) ---
EXAM DESCRIPTION: CT ABD/PELVIS WITH IV ONLY COMPLETED DATE/TIME: 09/11/2017 12:38 pm REASON FOR STUDY: LLQ pain COMPARISON: CT abdomen pelvis 08/07/2014, 11/21/2013, 01/31/2013 TECHNIQUE: CT scan of the abdomen and pelvis performed using helical scanning technique with dynamic intravenous contrast injection. No oral contrast. Images reviewed with lung, soft tissue, and bone windows. Reconstructed coronal and sagittal MPR images reviewed. Delayed images for evaluation of the urinary system also acquired. All images stored on PACS. All CT scanners at this facility use dose modulation, iterative reconstruction, and/or weight based d osing when appropriate to reduce radiation dose to as low as reasonably achievable (ALARA). [facility]: Dose Right [facility]: CareDose [facility]: Dose Right [facility]: Teradose 4D [facility]: MONOQI CONTRAST TYPE AND DOSE: contrast/concentration: Isovue 370.00 mg/ml; Total Contrast Delivered: 100.0 ml; Total Saline Delivered: 72.0 ml RENAL FUNCTION: Creatinine 0.73 RADIATION DOSE: CT Rad equipment meets quality standard of care and radiation dose reduction techniq ues were employed. CTDIvol: 21.1 mGy. DLP: 3619 mGy-cm.. LIMITATIONS: None. FINDINGS: LOWER CHEST: Unremarkable LIVER: Normal size. No masses. No dilated ducts. SPLEEN: Normal size. No focal lesions. PANCREAS: No masses. No significant calcifications. No adjacent inflammation or peripancreatic fluid collections. Pancreatic duct not dilated. GALLBLADDER: No identified stones by CT criteria. No inflammatory changes to suggest cholecystitis. ADRENAL GLANDS: No significant masses or asymmetry. RIGHT KIDNEY AND URETER: No solid masses. No significant calcifications. No hydronephrosis or hyd roureter. LEFT KIDNEY AND URETER: No solid masses. No significant calcifications. No hydronephrosis or hydr oureter. AORTA AND VESSELS: No aneurysm. No dissection. Renal arteries, SMA, celiac without stenosis. RETROPERITONEUM: No retroperitoneal adenopathy, hemorrhage or masses. BOWEL AND PERITONEAL CAVITY: No masses or inflammatory changes. No free fluid or peritoneal masses. No CT evidence of bowel obstruction APPENDIX: Normal. PELVIS: Uterus is 16 x 9 x 11 cm in size. Peripherally calcified endometrial polyp or degenerating f ibroid seen 08/07/2014 is no longer identified. Normal size ovaries with 3.5 cm cyst left ovary evide nt on axial image 62. No free pelvic fluid. No adenopathy. ABDOMINAL WALL: No masses. No hernias. BONES: No significant or acute findings. OTHER: No other significant finding. IMPRESSION: 3.5 cm left ovarian cyst. Enlarged fibroid uterus. Otherwise unremarkable study TECHNICAL DOCUMENTATION: JOB ID: [id number] Quality ID # [id number]: Final reports with documentation of one or more dose reduction techniques (e.g., Au tomated exposure control, adjustment of the mA and/or kV according to patient size, use of iterative reconstruction technique) 2010 [employer]- All Rights Reserved Reading location - IP/workstation name: [email or web address]
[2017-09-11 14:14] VITALS: BP 121/73
== END 2017-09-11 14:14 | disposition home or self-care (01) ==
LOC: ER 08:36
DX: N83.202 Unspecified ovarian cyst, left side (principal); D25.9 Leiomyoma of uterus, unspecified; R10.2 Pelvic and perineal pain; R10.32 Left lower quadrant pain; R11.0 Nausea; I10 Essential (primary) hypertension
CPT/HCPCS: 99284; 96374; 36415; 87210; 85025; 81025; 80048; 81001; 87491; 87591; 76830; 93976; 74177; J3010

== ENCOUNTER 2018-05-02 15:21 | Emergency (ER) | payer OTHER ==
--- NOTE | 2018-05-02 17:21 | ER Document Report ---
ED Medical Screen (RME) - General Chief Complaint: Vaginal Bleeding Stated Complaint: VAGINAL BLEEDING Time Seen by Provider: 05/02/18 17:16 TRAVEL OUTSIDE OF THE [place] IN LAST 30 DAYS: No - HPI Notes: 05/02/18 17:16 Patient is a 38-year-old female with no significant medical history aside from uterine fibroid that was surgically removed in the past who presents emergency department complaining of heavy vaginal bleeding that began last evening. Patient states that she is currently going through more than 2 pads per hour. Patient states that she does not have any associated pain or discomfort. Denies any headache, fever, neck pain, URI, sore throat, chest pain, palpitations, syncope, cough, shortness of breath, wheeze, dyspnea, abdominal pain, nausea/vomiting/diarrhea, urinary retention, dysuria, hematuria, or rash. I have treated and performed a rapid initial assessment of this patient. A comprehensive ED assessment and evaluation of the patient, analysis of test results and completion of medical decision making process will be conducted by additional ED providers. PHYSICAL EXAMINATION: GENERAL: Well-appearing, well-nourished and in no acute distress. A&Ox4. Answers questions appropriately. LUNGS: Breath sounds clear to auscultation bilaterally and equal. No wheezes rales or rhonchi. HEART: Regular rate and rhythm without murmurs, rubs, gallops. ABDOMEN: Soft, nondistended abdomen. No guarding, no rebound. Normal bowel sounds present. No CVA tenderness bilaterally. No obvious tenderness, limited exam in triage room. Extremities: No cyanosis, clubbing, or edema b/l. NEUROLOGICAL: Normal speech, normal gait. PSYCH: Normal mood, normal affect. - Related Data Allergies/Adverse Reactions: No Known Allergies Allergy (Verified 09/11/17 08:37) Past Medical History - Social History Chew tobacco use (# tins/day): No Frequency of alcohol use: None Drug Abuse: None - Past Medical History Cardiac Medical History: Reports: Hx Hypertension - Has not required any medications for this Pulmonary Medical History: Denies: Hx Tuberculosis Neurological Medical History: Reports: Hx Migraine Renal/ Medical History: Reports: Hx Kidney Stones. Denies: Hx Peritoneal Dialysis Psychiatric Medical History: Reports: Hx Depression Past Surgical History: Reports: Hx Breast Surgery - L lumpectomy, benign, Hx Dilation and Curettage, Hx Gynecologic Surgery - D&C, tumor removed from uterus - Immunizations Hx Diphtheria, Pertussis, Tetanus Vaccination: Yes - 2013 History of Influenza Vaccine for 12/2016 - 05/2017 Season: Unknown Physical Exam - Vital signs Vitals: Temp Pulse Resp BP Pulse Ox 98.8 F 100 18 139/91 H 97 05/02/18 15:28 05/02/18 15:28 05/02/18 15:28 05/02/18 15:28 05/02/18 15:28 Course - Vital Signs Vital signs: Temp Pulse Resp BP Pulse Ox 98.8 F 100 18 139/91 H 97 05/02/18 15:28 05/02/18 15:28 05/02/18 15:28 05/02/18 15:28 05/02/18 15:28
[2018-05-02 18:01] LABS: APPEARANCE,URINE CLOUDY; BILIRUBIN,URINE NEGATIVE (NEGATIVE); COLOR,URINE RED; GLUCOSE, URINE NEGATIVE (NEGATIVE); KETONES,URINE NEGATIVE (NEGATIVE); LEUKOCYTE ESTERASE,URINE TRACE (NEGATIVE); NITRITE,URINE NEGATIVE (NEGATIVE); PROTEIN,URINE 100 mg/dL (NEGATIVE); URINE SPECIFIC GRAVITY 1.019; UROBILINOGEN,URINE NEGATIVE mg/dL (<2.0)
--- NOTE | 2018-05-02 18:18 | RADIOLOGY REPORT (SQ) ---
EXAM DESCRIPTION: U/S NON OB PEL TV W/DOPPLER COMPLETED DATE/TIME: 05/02/2018 6:04 pm REASON FOR STUDY: heavy vaginal bleeding history of fibroid removal. COMPARISON: 09/11/2017 TECHNIQUE: Dynamic and static grayscale images acquired of the pelvis via transvaginal and transabdo wilfred approach and recorded on PACS. Additional selected color Doppler and spectral images recorded. LIMITATIONS: None. FINDINGS: UTERUS: Contour normal. No mass. ENDOMETRIAL STRIPE: Generalized thickening measuring 2.1 cm. CERVIX: No nabothian cysts. RIGHT OVARY AND DOPPLER: Nonvisualized. LEFT OVARY AND DOPPLER: Nonvisualized. FREE FLUID: None noted. OTHER: No other significant finding. MEASUREMENTS: UTERUS: 13.1 x 7.8 x 9.5 cm ENDOMETRIAL STRIPE: 2.1 cm RIGHT OVARY: Nonvisualized. LEFT OVARY: Nonvisualized. IMPRESSION: Thickening of the endometrial stripe with a psychiatric secretary phase appearance, in keeping with patient history of current menses although at 2.1 cm somewhat greater than expected maximum thickness . There is no focal mass, polyp, or other evident abnormality however endometrial hyperplasia is not excluded. Consider further gynecological evaluation and follow-up imaging in 6 weeks to evaluate fo r cyclical changes in the endometrial lining. TECHNICAL DOCUMENTATION: JOB ID: [id number] [employer]- All Rights Reserved Rev-08/12 Reading location - IP/workstation name: [email or web address]
[2018-05-02 18:32] LABS: ABSOLUTE EOSINOPHILS # (AUTO) 0.1 10^3/uL (0.0-0.6); ABSOLUTE MONOCYTES (AUTO) 0.4 10^3/uL (0.1-1.4); ABSOLUTE NEUT (AUTO) 6.3 10^3/uL (1.7-8.2); BASOPHILS % (AUTO) 0.5 % (0-2); EOSINOPHILS % (AUTO) 1.2 % (0-6); HEMATOCRIT 38.4 % (36.0-47.0); LYMPHOCYTES % (AUTO) 30.3 % (13-45); MEAN CORPUSCULAR HEMOGLOBIN 31.1 pg (27.0-33.4); MEAN CORPUSCULAR HGB CONC 33.8 g/dL (32.0-36.0); MEAN CORPUSCULAR VOLUME 92 fl (80-97); PLATELET COUNT 375 10^3/uL (150-450); RED BLOOD COUNT 4.17 10^6/uL (3.72-5.28); RED CELL DISTRIBUTION WIDTH 14.1 % (11.5-14.0); TOTAL CELLS COUNTED % (AUTO) 100 %; WHITE BLOOD COUNT 9.9 10^3/uL (4.0-10.5)
[2018-05-02 18:59] LABS: ALANINE AMINOTRANSFERASE 22 U/L (9-52); ALBUMIN 4.6 g/dL (3.5-5.0); ALKALINE PHOSPHATASE 89 U/L (38-126); ANION GAP 9 (5-19); ASPARTATE AMINO TRANSFERASE 24 U/L (14-36); BILIRUBIN,DIRECT 0.2 mg/dL (0.0-0.4); BILIRUBIN,TOTAL 0.3 mg/dL (0.2-1.3); BLOOD UREA NITROGEN 11 mg/dL (7-20); CALCIUM 9.8 mg/dL (8.4-10.2); CARBON DIOXIDE 28 mmol/L (22-30); CHLORIDE 103 mmol/L (98-107); GLUCOSE 84 mg/dL (75-110); POTASSIUM 4.2 mmol/L (3.6-5.0); TOTAL PROTEIN 7.7 g/dL (6.3-8.2)
--- NOTE | 2018-05-02 19:31 | ER Document Report ---
ED General - General Chief Complaint: Vaginal Bleeding Stated Complaint: VAGINAL BLEEDING Time Seen by Provider: 05/02/18 17:16 Primary Care Provider: SHERRY DELGADILLO MD [Primary Care Provider] - 05/03/18 Notes: Patient is a 38-year-old female who presents to the emergency department with a chief complaint of vaginal bleeding. Her bleeding started yesterday evening. She states she is now soaking more than 2 pads in an hour. She states that she should be on her menstrual cycle now, but has noticed that she has been late the past 2 cycles. She does have a history of a uterine fibroid removed in April of last year. She denies any nausea, vomiting, or diarrhea. She denies any abdominal pain or cramping. TRAVEL OUTSIDE OF THE [place] IN LAST 30 DAYS: No - Related Data Allergies/Adverse Reactions: No Known Allergies Allergy (Verified 09/11/17 08:37) Past Medical History - Social History Smoking Status: Never Smoker Chew tobacco use (# tins/day): No Frequency of alcohol use: None Drug Abuse: None Family History: None Patient has suicidal ideation: No Patient has homicidal ideation: No - Past Medical History Cardiac Medical History: Reports: Hx Hypertension - Has not required any medications for this Pulmonary Medical History: Denies: Hx Tuberculosis Neurological Medical History: Reports: Hx Migraine Renal/ Medical History: Reports: Hx Kidney Stones. Denies: Hx Peritoneal Dialysis Psychiatric Medical History: Reports: Hx Depression Past Surgical History: Reports: Hx Breast Surgery - L lumpectomy, benign, Hx Dilation and Curettage, Hx Gynecologic Surgery - D&C, tumor removed from uterus - Immunizations Hx Diphtheria, Pertussis, Tetanus Vaccination: Yes - 2013 Review of Systems - Review of Systems Notes: REVIEW OF SYSTEMS: CONSTITUTIONAL : Denies recent illness. Denies recent unintentional weight loss. Denies fever, chills, or sweats. EENT: Denies eye, ear, throat, or mouth pain, discharge, or symptoms. Denies nasal or sinus congestion. CARDIOVASCULAR: Denies chest pain. RESPIRATORY: Denies shortness of breath, cough, congestion, difficulty breathing, or wheezing. GASTROINTESTINAL: Denies nausea, vomiting, and diarrhea. Denies abdominal pain. Denies constipation. GENITOURINARY: Denies difficulty urinating, burning, blood in urine, urgency or frequency. MUSCULOSKELETAL: Denies neck and back pain. Denies joint pain or swelling. SKIN: Denies rash, itchiness, or lesions HEMATOLOGIC : Denies easy bruising or bleeding. LYMPHATIC: Denies swollen, painful, enlarged glands. NEUROLOGICAL: Denies no numbness or tingling denies weakness. Denies headache. Denies altered mental status. Denies alteration in speech. PSYCHIATRIC: Denies stress, anxiety, alteration in sleep patterns, or depress ion. FINISHED CLOTH CHECKER: See HPI All other systems reviewed and negative. Physical Exam - Vital signs Vitals: Temp Pulse Resp BP Pulse Ox 98.8 F 100 18 139/91 H 97 05/02/18 15:28 05/02/18 15:28 05/02/18 15:28 05/02/18 15:28 05/02/18 15:28 - Notes Notes: PHYSICAL EXAMINATION: GENERAL: Appears well, healthy, well-nourished, no acute distress. HEAD: Normocephalic, atraumatic. EYES: PERRL, conjunctiva normal, all extraocular movements intact, sclera nonicteric ENT: Moist mucous membranes. NECK: Supple, no noticeable swelling, redness, rash. Normal range of motion. LUNGS: Equal breath sounds bilaterally and clear to auscultation. No wheezes rales or rhonchi. CARDIOVASCULAR: S1-S2, regular rate, regular rhythm. Radial pulses 2+, normal. ABDOMEN: Normoactive bowel sounds. Soft, nontender, no guarding, no rebound tenderness, and no masses palpated. EXTREMITIES: Normal strength and range of motion, no pitting or edema. No cyanosis. NEUROLOGICAL: Moves all extremities upon command. Strength 5/5 in all extremities. PSYCH: Normal mood, normal affect. SKIN: Warm, dry. No rash, lesions, ulcerations noted. Normal skin turgor. FINISHED CLOTH CHECKER: Moderate amount of blood noted with clots noted. Course - Re-evaluation Re-evalutation: 05/02/18 20:07 A pelvic exam was done with IVIS Corado bedside and the patient has a moderate amount of bleeding noted with some clots. I advised her that she will continue to bleed. She has an appointment with her DIVING SUPERVISOR tomorrow at 230. She states that she does not want to go to [facility], because she has an appointment with her DIVING SUPERVISOR. The patient's CBC is normal. No anemia noted. Her urine hCG is positive. A serum quant hCG will be sent. Her transvaginal ultrasound shows endometrial thickening. 05/02/18 21:[address] Araujo in regards to the patient's hCG level. She states that the patient needs to follow-up with her primary DIVING SUPERVISOR and have her labs redrawn. I have discussed the hCG level with the patient. I told her that she needs to follow-up with her DIVING SUPERVISOR to tell them the results of her ultrasound a nd to have her labs redrawn. She will also be put on pelvic precautions. Verbal discharge instructions were given to the patient. They verbalized understanding. They are stable for discharge. - Vital Signs Vital signs: Temp Pulse Resp BP Pulse Ox 98.7 F 84 20 136/92 H 100 05/02/18 20:56 05/02/18 20:56 05/02/18 20:56 05/02/18 20:56 05/02/18 20:56 - Laboratory Result Diagrams: 05/02/18 18:19 05/02/18 18:19 Laboratory results interpreted by me: 05/02/18 05/02/18 05/02/18 17:28 18:19 18:19 RDW 14.1 H Serum HCG, Qual POSITIVE H Beta HCG, Quant Urine Protein 100 H Urine Blood LARGE H Ur Leukocyte Esterase TRACE H 05/02/18 18:19 RDW Serum HCG, Qual Beta HCG, Quant 287.83 H Urine Protein Urine Blood Ur Leukocyte Esterase Discharge - Discharge Clinical Impression: Vaginal bleeding Condition: Stable Disposition: HOME, SELF-CARE Additional Instructions: You were seen in the emergency department for vaginal bleeding. Please see your DIVING SUPERVISOR tomorrow and keep your appointment. Please let them know you are here in the emergency department. You have been provided with your ultrasound results in your lab results. If you develop cramping, you may take Tylenol for your pain. If you feel your bleeding is getting worse, develop a fever, or have any symptoms that are worrisome to you, please return to the emergency department. Forms: Return to Work Referrals: SHERRY DELGADILLO MD [Primary Care Provider] - 05/03/18
[2018-05-02] MEDS ORDERED: ONDANSETRON 4 MG TAB.RAPDIS PO ONE (19:56)
[2018-05-02 21:41] VITALS: BP 136/92
== END 2018-05-02 21:05 | disposition home or self-care (01) ==
LOC: ER 15:21
DX: N93.9 Abnormal uterine and vaginal bleeding, unspecified (principal); R93.89 Abnormal findings on diagnostic imaging of other specified body structures; Z32.01 Encounter for pregnancy test, result positive; I10 Essential (primary) hypertension; Z87.42 Personal history of other diseases of the female genital tract; Z98.890 Other specified postprocedural states
CPT/HCPCS: 99284; 86900; 86901; 36415; 87086; 86850; 84702; 84703; 85025; 80053; 81001; 76830; 93976; S0119

== ENCOUNTER → 2018-05-04 | Outpatient (CLI) | payer OTHER | LOC: LAB 16:12 | PROVIDERS: ATTEND Specialist | DX: O20.0 Threatened abortion (principal) | CPT/HCPCS: 36415; 84702 ==

== ENCOUNTER → 2018-05-08 | Outpatient (CLI) | payer OTHER ==
[~2018-05-08] MED LIST: DISPOSABLE IM PRN; METHOTREXATE SODIUM IM PRN
[2018-05-08 13:15] LABS: HEMATOCRIT 32.3 % (36.0-47.0); HEMOGLOBIN 11.1 g/dL (12.0-15.5); MEAN CORPUSCULAR HEMOGLOBIN 31.4 pg (27.0-33.4); MEAN CORPUSCULAR HGB CONC 34.2 g/dL (32.0-36.0); MEAN CORPUSCULAR VOLUME 92 fl (80-97); PLATELET COUNT 324 10^3/uL (150-450); RED BLOOD COUNT 3.52 10^6/uL (3.72-5.28); RED CELL DISTRIBUTION WIDTH 14.2 % (11.5-14.0); WHITE BLOOD COUNT 9.6 10^3/uL (4.0-10.5)
[2018-05-08 13:37] LABS: ALANINE AMINOTRANSFERASE 25 U/L (9-52); ALBUMIN 3.7 g/dL (3.5-5.0); ALKALINE PHOSPHATASE 63 U/L (38-126); ANION GAP 6 (5-19); ASPARTATE AMINO TRANSFERASE 18 U/L (14-36); BILIRUBIN,DIRECT 0.1 mg/dL (0.0-0.4); BILIRUBIN,TOTAL 0.3 mg/dL (0.2-1.3); BLOOD UREA NITROGEN 11 mg/dL (7-20); CALCIUM 9.2 mg/dL (8.4-10.2); CARBON DIOXIDE 28 mmol/L (22-30); CHLORIDE 104 mmol/L (98-107); GLUCOSE 134 mg/dL (75-110); POTASSIUM 3.9 mmol/L (3.6-5.0); SODIUM 138.2 mmol/L (137-145); TOTAL PROTEIN 6.3 g/dL (6.3-8.2)
== END ==
LOC: LAB 09:46
PROVIDERS: ATTEND Specialist
DX: O20.0 Threatened abortion (principal)
CPT/HCPCS: 96372; 36415; 84702; 85027; 80076; 80048; J9260; J3490

== ENCOUNTER → 2018-05-11 | Outpatient (CLI) | payer OTHER | LOC: LAB 08:18 → 5TH 08:45 → LAB 08:45 | PROVIDERS: ATTEND Specialist | DX: O00.80 Other ectopic pregnancy without intrauterine pregnancy (principal) | CPT/HCPCS: 36415; 84702 ==

== ENCOUNTER → 2018-05-14 | Outpatient (CLI) | payer OTHER ==
[~2018-05-14] MED LIST changes: -DISPOSABLE IM PRN; -METHOTREXATE SODIUM IM PRN; +METHOTREXATE SODIUM INJ/PF 50 MG/2 ML IM ONE
== END ==
LOC: LAB 11:46
PROVIDERS: ATTEND Specialist
DX: O00.80 Other ectopic pregnancy without intrauterine pregnancy (principal)
CPT/HCPCS: 36415; 84702

== ENCOUNTER → 2018-05-21 | Outpatient (CLI) | payer OTHER | LOC: LAB 18:23 | PROVIDERS: ATTEND Specialist | DX: O00.80 Other ectopic pregnancy without intrauterine pregnancy (principal) | CPT/HCPCS: 36415; 84702 ==

== ENCOUNTER → 2018-05-29 | Outpatient (CLI) | payer OTHER | LOC: LAB 13:38 | PROVIDERS: ATTEND Specialist | DX: O00.80 Other ectopic pregnancy without intrauterine pregnancy (principal) | CPT/HCPCS: 36415; 84702 ==

== ENCOUNTER → 2018-06-04 | Outpatient (CLI) | payer OTHER | LOC: LAB 13:32 | PROVIDERS: ATTEND Specialist | DX: O00.80 Other ectopic pregnancy without intrauterine pregnancy (principal) | CPT/HCPCS: 36415; 84702 ==

== ENCOUNTER → 2018-06-11 | Outpatient (CLI) | payer OTHER | LOC: LAB 11:06 | PROVIDERS: ATTEND Specialist | DX: O00.80 Other ectopic pregnancy without intrauterine pregnancy (principal); Z3A.00 Weeks of gestation of pregnancy not specified | CPT/HCPCS: 36415; 84702 ==

== ENCOUNTER 2018-08-31 09:52 | Emergency (ER) | payer OTHER ==
[2018-08-31] MEDS ORDERED: PROCHLORPERAZINE EDISYLATE INJ 10 MG/2 ML VIAL IV ONE (10:14)
[2018-08-31] MEDS ORDERED: KETOROLAC TROMETHAMINE INJ/PF 30 MG/1 ML SDV IV ONE (10:14)
[2018-08-31] MEDS ORDERED: DIPHENHYDRAMINE HCL 50 MG/ML VIAL IV ONE (10:14)
[2018-08-31] MEDS ORDERED: NORMAL SALINE 1000 ML 1,000 ML IV ONE (10:16)
--- NOTE | 2018-08-31 10:16 | ER Document Report ---
ED Medical Screen (RME) - General Chief Complaint: Headache Stated Complaint: HEADACHE Time Seen by Provider: 08/31/18 10:10 Primary Care Provider: SHERRY DELGADILLO MD [Primary Care Provider] - Follow up as needed Mode of Arrival: Ambulatory Information source: Patient Notes: Patient is an otherwise healthy 38-year-old female presented to the emergency department with complaints of dizziness, nausea, vomiting and severe headache that has been persistent for 3 days. She states she feels like she is going to pass out. Patient denies history of any similar episodes. She does state she has had migraines in the past, states this feels nothing like a normal migraine. She states the pain is on the left side of her head. Exam: No focal neurological deficits noted. I have greeted and performed a rapid initial assessment of this patient. A comprehensive ED assessment and evaluation of the patient, analysis of test results and completion of the medical decision making process will be conducted by additional ED providers. Dictation of this chart was performed using voice recognition software; therefore, there may be some unintended grammatical errors. TRAVEL OUTSIDE OF THE [place] IN LAST 30 DAYS: No - Related Data Allergies/Adverse Reactions: No Known Allergies Allergy (Verified 08/31/18 09:54) Past Medical History - Past Medical History Cardiac Medical History: Reports: Hx Hypertension - Has not required any me dications for this Pulmonary Medical History: Denies: Hx Tuberculosis Neurological Medical History: Reports: Hx Migraine Renal/ Medical History: Reports: Hx Kidney Stones. Denies: Hx Peritoneal Dialysis Psychiatric Medical History: Reports: Hx Depression Past Surgical History: Reports: Hx Breast Surgery - L lumpectomy, benign, Hx Dilation and Curettage, Hx Gynecologic Surgery - D&C, tumor removed from uterus - Immunizations Hx Diphtheria, Pertussis, Tetanus Vaccination: Yes - 2013 History of Influenza Vaccine for 12/2016 - 05/2017 Season: Unknown Physical Exam - Vital signs Vitals: Temp Pulse Resp BP Pulse Ox 98.4 F 87 18 161/103 H 97 08/31/18 09:56 08/31/18 09:56 08/31/18 09:56 08/31/18 09:56 08/31/18 09:56 Course - Vital Signs Vital signs: Temp Pulse Resp BP Pulse Ox 98.4 F 87 18 161/103 H 97 08/31/18 09:56 08/31/18 09:56 08/31/18 09:56 08/31/18 09:56 08/31/18 09:56 Doctor's Discharge - Discharge Referrals: SHERRY DELGADILLO MD [Primary Care Provider] - Follow up as needed
--- NOTE | 2018-08-31 10:56 | RADIOLOGY REPORT (SQ) ---
EXAM DESCRIPTION: CT HEAD WITHOUT COMPLETED DATE/TIME: 08/31/2018 10:45 am REASON FOR STUDY: worst headache ever COMPARISON: 11/15/2010. TECHNIQUE: Axial images acquired through the brain without intravenous contrast. Images reviewed wi th bone, brain and subdural windows. Additional sagittal and coronal reconstructions were generated. Images stored on PACS. All CT scanners at this facility use dose modulation, iterative reconstruction, and/or weight based d osing when appropriate to reduce radiation dose to as low as reasonably achievable (ALARA). [facility]: Dose Right [facility]: CareDose [facility]: Dose Right [facility]: Teradose 4D [facility]: [place] RADIATION DOSE: CT Rad equipment meets quality standard of care and radiation dose reduction techniq ues were employed. CTDIvol: 53.2 mGy. DLP: 1017 mGy-cm. mGy. LIMITATIONS: None. FINDINGS: VENTRICLES: Normal size and contour. CEREBRUM: No masses. No hemorrhage. No midline shift. No evidence for acute infarction. Normal gra y/white matter differentiation. No areas of low density in the white matter. CEREBELLUM: No masses. No hemorrhage. No alteration of density. No evidence for acute infarction. EXTRAAXIAL SPACES: No fluid collections. No masses. ORBITS AND GLOBE: No intra- or extraconal masses. Normal contour of globe without masses. CALVARIUM: No fracture. PARANASAL SINUSES: No fluid or mucosal thickening. SOFT TISSUES: No mass or hematoma. OTHER: No other significant finding. IMPRESSION: NORMAL BRAIN CT WITHOUT CONTRAST. EVIDENCE OF ACUTE STROKE: NO. COMMENT: Quality ID # [id number]: Final reports with documentation of one or more dose reduction techniques (e.g., Automated exposure control, adjustment of the mA and/or kV according to patient size, use of iterative reconstruction technique) TECHNICAL DOCUMENTATION: JOB ID: [id number]- All Rights Reserved Reading location - IP/workstation name: [email or web address]
--- NOTE | 2018-08-31 12:17 | ER Document Report ---
ED Headache - General Chief Complaint: Headache Stated Complaint: HEADACHE Time Seen by Provider: 08/31/18 10:10 Primary Care Provider: SHERRY DELGADILLO MD [EMERITUS] - Follow up as needed Mode of Arrival: Ambulatory TRAVEL OUTSIDE OF THE [place] IN LAST 30 DAYS: No - HPI Notes: Patient is a 38-year-old female presents to the emergency department today for headache. Patient states that 3 days ago she developed a left-sided headache that she describes as a constant stabbing. Patient states she does have a history of migraines but this was different because she was also having dizziness. Patient says she attempted Excedrin Migraine without relief. Patient denies fever or recent illness to include cough or cold. Patient states that this morning she woke up with worse pain and blurred vision to the left eye. Patient states she attempted to go to work but was sent to the emergency department due to vomiting. Patient states this morning she vomited 2-3 times. Patient denies abdominal pain or diarrhea. Patient states that she felt like she was going to pass out because of the dizziness associated with a headache. Denies photophobia. - Related Data Allergies/Adverse Reactions: No Known Allergies Allergy (Verified 08/31/18 09:54) Past Medical History - General Information source: Patient - Social History Smoking Status: Never Smoker Chew tobacco use (# tins/day): No Frequency of alcohol use: Occasional Drug Abuse: None Family History: None Patient has suicidal ideation: No Patient has homicidal ideation: No - Past Medical History Cardiac Medical History: Reports: Hx Hypertension - Has not required any medications for this Pulmonary Medical History: Reports: None Denies: Hx Tuberculosis EENT Medical History: Reports: None Neurological Medical History: Reports: Hx Migraine Endocrine Medical History: Reports: None Renal/ Medical History: Reports: Hx Kidney Stones. Denies: Hx Peritoneal Dialysis Malignancy Medical History: Reports: None GI Medical History: Reports: None Musculoskeletal Medical History: Reports None Skin Medical History: Reports None Psychiatric Medical History: Reports: Hx Depression Traumatic Medical History: Reports: None Infectious Medical History: Reports: None Past Surgical History: Reports: Hx Breast Surgery - L lumpectomy, benign, Hx Dilation and Curettage, Hx Gynecologic Surgery - D&C, tumor removed from uterus - Immunizations Hx Diphtheria, Pertussis, Tetanus Vaccination: Yes - 2013 Review of Systems - Review of Systems Constitutional: No symptoms reported EENT: See HPI Cardiovascular: No symptoms reported Respiratory: No symptoms reported Gastrointestinal: See HPI Genitourinary: No symptoms reported Female Genitourinary: No symptoms reported Musculoskeletal: No symptoms reported Skin: No symptoms reported Hematologic/Lymphatic: No symptoms reported Neurological/Psychological: No symptoms reported Physical Exam - Vital signs Vitals: Temp Pulse Resp BP Pulse Ox 98.4 F 87 18 161/103 H 97 08/31/18 09:56 08/31/18 09:56 08/31/18 09:56 08/31/18 09:56 08/31/18 09:56 Interpretation: Hypertensive Notes: Hypertensive initially in triage. - Notes Notes: GENERAL: Well-appearing, well-nourished and in no acute distress. HEAD: Atraumatic, normocephalic. EYES: Pupils equal round and reactive to light 3mm bilaterally, extraocular movements intact, sclera anicteric, conjunctiva are normal. No nystagmus. ENT: Nares patent, oropharynx clear without exudates. Moist mucous membranes. NECK: Normal range of motion, supple without lymphadenopathy or JVD. LUNGS: Breath sounds clear to auscultation bilaterally and equal. No wheezes rales or rhonchi. HEART: Regular rate and rhythm without murmurs, rubs or gallops. ABDOMEN: Soft, nontender, normoactive bowel sounds. No guarding, no rebound. No masses appreciated. BACK: No cervical, thoracic, lumbar midline tenderness. No saddle anesthesia, normal distal neurovascular exam. GENITOURINARY: Deferred. EXTREMITIES: Normal range of motion, no pitting or edema. No clubbing or cyanosis. NEUROLOGICAL: Cranial nerves II through XII grossly intact. Normal speech, normal gait. PSYCH: Normal mood, normal affect. SKIN: Warm, Dry, normal turgor, no rashes or lesions noted. Face symmetric. Tongue protrudes midline. Extraocular motions intact. Pupils are 2 mm and equally reactive. Normal speech, normal gait. 5 out of 5 strength in both the distal and proximal upper and lower extremities bilaterally. Sensation is grossly intact throughout. Finger to nose testing normal. Pronator drift normal. Course - Re-evaluation Re-evalutation: 08/31/18 12:15 Upon my initial evaluation patient had been medicated in triage and reports that her symptoms have completely resolved. Patient currently denies headache, dizziness or blurred vision to the left eye. CAT scan of the head was negative, I did discuss these results with her. Neuro examination was negative. Patient reports feeling much better and would like to go home. Will attempt a PO challenge and discharge if tolerated. - Vital Signs Vital signs: Temp Pulse Resp BP Pulse Ox 98.4 F 87 18 161/103 H 97 08/31/18 09:56 08/31/18 09:56 08/31/18 09:56 08/31/18 09:56 08/31/18 09:56 - Diagnostic Test Radiology reviewed: Reports reviewed Discharge - Discharge Clinical Impression: Dizziness Headache Qualifiers: Headache type: unspecified Headache chronicity pattern: acute headache Intractability: not intractable Qualified Code(s): R51 - Headache Nausea & vomiting Qualifiers: Vomiting type: unspecified Vomiting Intractability: unspecified Qualified Code(s): R11.2 - Nausea with vomiting, unspecified Condition: Stable Disposition: HOME, SELF-CARE Instructions: Toradol Injection ([facility]), Intravenous Compazine for Headaches ([facility]), Use of Diphenhydramine, Headache ([facility]), Intravenous (IV) Fluids ([facility]) Additional Instructions: Today you were seen in the emergency department for headache and dizziness. This was different from your normal migraine headache as you reported so a CAT scan of your head was performed - this was negative for any acute abnormality. After adequate IV hydration and medication your symptoms have resolved. Please rest today, increase fluid intake. Return to the emergency department for worsening symptoms to include severe headache, uncontrollable vomiting, fever, neck pain, difficulty walking or any new concerning signs or symptoms. Headache The physician does not feel that the headache you are experiencing has a serious underlying cause. Most headaches are due to emotional stress, with resultant muscle tension (tension headache). Occasionally, headaches are secondary to changes in the blood vessels of the scalp (vascular headache and migraine headache). Sometimes, a headache is the first symptom of another developing illness, such as a viral infection. You have no evidence of stroke, bleeding, meningitis, or other serious cause of your headache. The treatment of headaches varies with the severity and cause of the pain. Not all headaches need pain shots. In fact, there is evidence that using narcotics for headaches may make them worse in the long run. The physician will determine the therapy that's in your best interest. If you develop a fever, if the headache is different from any you've previously experienced, or if the headache progressively worsens, then call your physician at once or go to the emergency room. Forms: Return to Work Referrals: SHERRY DELGADILLO MD [EMERITUS] - Follow up as needed
[2018-08-31 12:53] VITALS: BP 131/88
== END 2018-08-31 12:53 | disposition home or self-care (01) ==
LOC: ER 09:52
DX: R51 Headache (principal); R11.2 Nausea with vomiting, unspecified; R42 Dizziness and giddiness; Z87.442 Personal history of urinary calculi
CPT/HCPCS: 99284; 96361; 96374; 96375; 70450; J1200; J1885; J0780; J7030

== ENCOUNTER → 2020-04-14 | Outpatient (CLI) | payer OTHER ==
--- NOTE | 2020-04-14 16:25 | RADIOLOGY REPORT (SQ) ---
EXAM DESCRIPTION: KNEE LEFT 4 VIEW IMAGES COMPLETED DATE/TIME: 04/14/2020 3:54 pm REASON FOR STUDY: (M25.562)PAIN IN LEFT KNEE M25.562 PAIN IN LEFT KNEE M54.16 RADICULOPATHY, LUMBA R REGION COMPARISON: None. NUMBER OF VIEWS: Four views. TECHNIQUE: AP, lateral, and both oblique radiographic images acquired of the left knee. LIMITATIONS: None. FINDINGS: MINERALIZATION: Normal. BONES: No acute fracture or dislocation. No worrisome bone lesions. JOINT: There is joint space narrowing in all compartments. SOFT TISSUES: No soft tissue swelling. No radio-opaque foreign body. OTHER: No other significant finding. IMPRESSION: Joint space narrowing in all compartments. No effusion. No acute findings. TECHNICAL DOCUMENTATION: JOB ID: [id number] 2010 [employer]- All Rights Reserved Reading location - IP/workstation name: [email or web address]
--- NOTE | 2020-04-14 16:27 | RADIOLOGY REPORT (SQ) ---
EXAM DESCRIPTION: L SPINE WHOLE IMAGES COMPLETED DATE/TIME: 04/14/2020 3:54 pm REASON FOR STUDY: (M25.562)PAIN IN LEFT KNEE;(M54.16)RADICULOPATHY, LUMBAR REGION M25.562 PAIN IN L EFT KNEE M54.16 RADICULOPATHY, LUMBAR REGION COMPARISON: None. NUMBER OF VIEWS: Five views including obliques. TECHNIQUE: AP, lateral, oblique, and sacral radiographic images acquired of the lumbar spine. LIMITATIONS: None. FINDINGS: MINERALIZATION: Normal. SEGMENTATION: Normal. No transitional anatomy. ALIGNMENT: Mild scoliosis with concavity toward the right. VERTEBRAE: Maintained height. No fracture or worrisome bone lesion. DISCS: Mild disc space narrowing at L4-L5. POSTERIOR ELEMENTS: Facet arthropathy at L4-L5 and L5-S1. HARDWARE: None in the spine. PARASPINAL SOFT TISSUES: Normal. PELVIS: Intact as visualized. No fractures or worrisome bone lesions. SI joints intact. OTHER: No other significant finding. IMPRESSION: 1. Facet arthropathy at L4-L5 and L5-S1. 2. Mild scoliosis. 3. Mild disc space narrowing at L4-L5. TECHNICAL DOCUMENTATION: JOB ID: [id number] 2010 [employer]- All Rights Reserved Reading location - IP/workstation name: [email or web address]
== END ==
LOC: RAD 15:25
PROVIDERS: ATTEND Family Medicine
DX: M25.562 Pain in left knee (principal); M47.27 Other spondylosis with radiculopathy, lumbosacral region
CPT/HCPCS: 72110